=== PATIENT | female | born 1955 | race Caucasian/White ===

== ENCOUNTER 2018-03-19 14:44 | Emergency (ER) | payer OTHER ==
[2018-03-19] MEDS ORDERED: KETOROLAC TROMETHAMINE INJ/PF 30 MG/1 ML SDV IV ONE (16:33)
[2018-03-19] MEDS ORDERED: NORMAL SALINE 1000 ML 1,000 ML IV PRN ×2 (16:33→20:45)
[2018-03-19] MEDS ORDERED: ONDANSETRON HCL INJ/PF 4 MG/2 ML SDV IV ONE (16:33)
--- NOTE | 2018-03-19 16:34 | ER Document Report ---
ED General <REED CERON - Last Filed: 03/20/18 03:27> - General TRAVEL OUTSIDE OF THE [place] IN LAST 30 DAYS: No <JHON BECK - Last Filed: 03/23/18 07:09> - General Chief Complaint: Nausea/Vomiting/Diarrhea Stated Complaint: VOMITING, NECK/STOMACH PAIN Time Seen by Provider: 03/19/18 16:26 Notes: Patient is a 63-year-old female who was referred to the emergency department by her primary care with a chief complaint of nausea, vomiting that started at 4 AM. She states that she initially woke up with nausea then developed epigastric pain radiating to her right and upper quadrants and into her back. She admits to a burning cramping stabbing pain in the epigastric area. She admits to vomiting all day not being able to tolerate p.o. She denies any fevers or chills. She denies any coffee-ground emesis, hematemesis. Admits to 1-2 loose bowel movements. She denies a history of gallbladder disease. Past medical history significant for esophageal reflux that she does not take any specific medication for it just avoids irritating foods. History of hypertension on lisinopril Past surgical history significant for previous kidney stone removal Social history: Denies any tobacco, alcohol or drug use Primary care is Dr. Higgins (JHON BECK) - Related Data Allergies/Adverse Reactions: No Known Allergies Allergy (Verified 03/19/18 14:45) Past Medical History - Social History Smoking Status: Never Smoker Family History: Reviewed & Not Pertinent <JHON BECK - Last Filed: 03/23/18 07:09> Review of Systems - Review of Systems Constitutional: No symptoms reported Cardiovascular: No symptoms reported Respiratory: No symptoms reported Gastrointestinal: See HPI Genitourinary: No symptoms reported Musculoskeletal: No symptoms reported Neurological/Psychological: No symptoms reported -: Yes All other systems reviewed and negative <JHON BECK - Last Filed: 03/23/18 07:09> Physical Exam <REED CERON - Last Filed: 03/20/18 03:27> <JHON BECK - Last Filed: 03/23/18 07:09> - Vital signs Vitals: Temp Pulse Resp BP Pulse Ox 97.7 F 97 20 101/74 98 03/19/18 14:48 03/19/18 14:48 03/19/18 14:48 03/19/18 14:48 03/19/18 14:48 - Notes Notes: PHYSICAL EXAM GENERAL: Alert, irritable due to discomfort but very cooperative. Pain tolerable sitting up, worse supine HEAD: Normocephalic, atraumatic. EYES: Pupils equal, round, and reactive to light. Extraocular movements intact. ENT: Oral mucosa moist, tongue midline. NECK: Full range of motion. Supple. Trachea midline. LUNGS: Clear to auscultation bilaterally, no wheezes, rales, or rhonchi. No respiratory distress. HEART: Regular rate and rhythm. No murmurs, gallops, or rubs. ABDOMEN: Soft, nondistended, epigastric and RUQ tenderness. No guarding, rebound, or rigidity.. Bowel sounds present in all 4 quadrants. EXTREMITIES: Moves all 4 extremities spontaneously. No edema, radial and dorsalis pedis pulses 2/4 bilaterally. No cyanosis. NEUROLOGICAL: Alert and oriented x4. Normal speech. PSYCH: Normal affect, normal mood. SKIN: Warm, dry, normal turgor. No rashes or lesions noted. (JHON BECK) Course - Laboratory Result Diagrams: 03/19/18 16:21 03/19/18 16:21 <REED CERON - Last Filed: 03/20/18 03:27> - Laboratory Result Diagrams: 03/19/18 16:21 03/19/18 16:21 <JHON BECK - Last Filed: 03/23/18 07:09> - Re-evaluation Re-evalutation: 03/19/18 20:15 Ultrasound shows cholelithiasis, CAT scan showing pancreatitis with peripancreatic fluid. Elevated LFTs, significantly elevated lipase, somewhat elevated bilirubin. Concerning for gallstone pancreatitis. Dr. Higgins called me and has already reviewed the results, wants to make sure that I saw them will discuss with patient and family for transfer due to lack of GI coverage to perform ERCP. Covering with Invanz. Patient reports she is much improved after pain/nausea medication and IV fluids. She is not tachycardic, hypotensive, or febrile. Remaining labs are still pending. Requests [facility] transfer. Transfer center has been contacted, pending call back. 03/19/18 20:[address] Brito, Hospitalist, patient will be accepted for transfer. Urinalysis shows infection, culture placed, blood culture already has been placed, antibiotics have already started infusing. 03/20/18 01:20 Patient has been reevaluated twice, vital signs remain unremarkable with no hypotension, tachycardia. Patient began having a lot of pain again and had to be remedicated. Patient has a bed assignment, transport should be here in 2 hours. 03/20/18 02:45 EMS team is almost here, patient is alert and well-appearing, has not had any vomiting, vital signs unchanged, stable for transport. (REED CERON) 03/19/18 18:27 Patient is a 63-year-old female who presents with epigastric pain. Patient is afebrile, hemodynamically stable. She is visibly uncomfortable. States that Toradol, fentanyl not improving her pain. Patient's CBC did return with a leukocytosis of 22.5. Chemistry was delayed I did have to call for the results. Patient with stable chemistry however her lipase was severely elevated that required dilution therefore delay in results being released. They have now been released which shows elevations in LFTs and lipase which is concerning for common bile duct stone. She will be sent for a CT the abdomen pelvis with IV contrast as well as an ultrasound of the right upper quadrant. Patient will be kept n.p.o. at this time. We will continue to administer IV fluids and pain medication. 03/19/18 18:45 KUB without evidence of free air in the abdomen (JHON BECK) - Vital Signs Vital signs: Temp Pulse Resp BP Pulse Ox 98.8 F 84 20 123/89 H 97 03/19/18 19:55 03/19/18 19:55 03/20/18 02:31 03/20/18 02:31 03/20/18 02:31 - Laboratory Laboratory results interpreted by la: 03/19/18 03/19/18 03/19/18 16:21 16:21 19:40 WBC 27.7 H RBC 5.37 H RDW 15.6 H Plt Count 518 H Seg Neuts % (Manual) 88 H Lymphocytes % (Manual) 4 L Abs Neuts (Manual) 24.4 H Abs Monocytes (Manual) 2.2 H Sodium 146.9 H BUN 22 H Creatinine 1.51 H Est GFR ( Amer) 42 L Est GFR (Non-Af Amer) 35 L Glucose 286 H Lactic Acid 3.7 H Total Bilirubin 1.4 H Direct Bilirubin 0.8 H AST 546 H ALT 260 H Lipase 05963.6 H Urine Protein Urine Blood Ur Leukocyte Esterase 03/19/18 19:58 WBC RBC RDW Plt Count Seg Neuts % (Manual) Lymphocytes % (Manual) Abs Neuts (Manual) Abs Monocytes (Manual) Sodium BUN Creatinine Est GFR ( Amer) Est GFR (Non-Af Amer) Glucose Lactic Acid Total Bilirubin Direct Bilirubin AST ALT Lipase Urine Protein >=500 H Urine Blood MODERATE H Ur Leukocyte Esterase LARGE H Discharge <REED CERON - Last Filed: 03/20/18 03:27> <JHON BECK - Last Filed: 03/23/18 07:09> - Discharge Condition: Stable Disposition: [facility] Referrals: ROSALINDA HIGGINS MD [Primary Care Provider] - Follow up as needed
[2018-03-19 16:59] LABS: HEMATOCRIT 46.2 % (36.0-47.0); MEAN CORPUSCULAR HEMOGLOBIN 27.9 pg (27.0-33.4); MEAN CORPUSCULAR HGB CONC 32.3 g/dL (32.0-36.0); MEAN CORPUSCULAR VOLUME 86 fl (80-97); PLATELET COUNT 518 10^3/uL (150-450); RED BLOOD COUNT 5.37 10^6/uL (3.72-5.28); RED CELL DISTRIBUTION WIDTH 15.6 % (11.5-14.0); WHITE BLOOD COUNT 27.7 10^3/uL (4.0-10.5)
[2018-03-19 17:11] LABS: ALANINE AMINOTRANSFERASE 260 U/L (9-52); ALBUMIN 4.4 g/dL (3.5-5.0); ALKALINE PHOSPHATASE 111 U/L (38-126); ANION GAP 17 (5-19); ASPARTATE AMINO TRANSFERASE 546 U/L (14-36); BILIRUBIN,DIRECT 0.8 mg/dL (0.0-0.4); BILIRUBIN,TOTAL 1.4 mg/dL (0.2-1.3); BLOOD UREA NITROGEN 22 mg/dL (7-20); CALCIUM 9.3 mg/dL (8.4-10.2); CARBON DIOXIDE 26 mmol/L (22-30); CHLORIDE 104 mmol/L (98-107); GLUCOSE 286 mg/dL (75-110); POTASSIUM 4.5 mmol/L (3.6-5.0); SODIUM 146.9 mmol/L (137-145); TOTAL PROTEIN 7.7 g/dL (6.3-8.2)
[2018-03-19 17:18] LABS: ABSOLUTE LYMPHOCYTES# (MANUAL) 1.1 10^3/uL (0.5-4.7); ABSOLUTE MONOCYTES # (MANUAL) 2.2 10^3/uL (0.1-1.4); ABSOLUTE NEUTROPHILS# (MANUAL) 24.4 10^3/uL (1.7-8.2); BASOPHILS % (MANUAL) 0 % (0-2); EOSINOPHILS % (MANUAL) 0 % (0-6); LYMPHOCYTES % (MANUAL) 4 % (13-45); MONOCYTES % (MANUAL) 8 % (3-13); SEGMENTED NEUTROPHILS % (MAN) 88 % (42-78); TOTAL CELLS COUNTED 100
[2018-03-19 17:19] LABS: TOXIC GRANULATION SLIGHT
[2018-03-19 17:20] LABS: ANISOCYTOSIS SLIGHT; PLATELET COMMENT INCREASED
[2018-03-19] MEDS ORDERED: FENTANYL CITRATE INJ/PF 100 MCG/2 ML AMPUL IV ONE ×2 (17:26→23:50)
[2018-03-19] MEDS ORDERED: NORMAL SALINE 1000 ML 1,000 ML IV ONE ×3 (17:29→23:15)
[2018-03-19 18:17] LABS: LIPASE 54770.6 U/L (23-300)
[2018-03-19] MEDS ORDERED: METOCLOPRAMIDE HCL INJ/PF 10 MG/2 ML SDV IV ONE (18:22)
[2018-03-19] MEDS ORDERED: HYDROMORPHONE HCL INJ/PF 2 MG/ML AMPULE IV ONE ×2 (18:22→21:16)
--- NOTE | 2018-03-19 18:30 | RADIOLOGY REPORT (SQ) ---
EXAM DESCRIPTION: ACUTE ABDOMEN SERIES COMPLETED DATE/TIME: 03/19/2018 6:20 pm REASON FOR STUDY: EPIGASTRIC pain, tenderness COMPARISON: None. NUMBER OF VIEWS: Three views. TECHNIQUE: Frontal chest, supine abdomen and upright/ abdomen radiographic images acquired. LIMITATIONS: None. FINDINGS: CHEST: Lungs clear of infiltrates. FREE AIR: None. No abnormal gas collections. BOWEL GAS PATTERN: Nonobstructive pattern. No dilated loops or air fluid levels. CALCIFICATIONS: 1 cm calcification in the region of the upper pole the left kidney. Large irregular calcification in the right side of the pelvis not likely to be in the ureter. HARDWARE: None in the abdomen. SOFT TISSUES: No gross mass or suggestion of organomegaly. BONES: No acute fracture. No worrisome bone lesions. OTHER: No other significant finding. IMPRESSION: Possible calyceal calculus in the left kidney. TECHNICAL DOCUMENTATION: JOB ID: [id number] [employer]- All Rights Reserved Reading location - IP/workstation name: [email or web address]
--- NOTE | 2018-03-19 19:30 | RADIOLOGY REPORT (SQ) ---
EXAM DESCRIPTION: U/S ABDOMEN LIMITED W/O DOP COMPLETED DATE/TIME: 03/19/2018 7:16 pm REASON FOR STUDY: RUQ pain and elevated liver and panc enzymes COMPARISON: None. TECHNIQUE: Dynamic and static grayscale images acquired of the abdomen and recorded on PACS. Additio lina selected color Doppler and spectral images recorded. LIMITATIONS: Overlying bowel gas limits evaluation. FINDINGS: PANCREAS: Not seen. LIVER: 16 cm. Increased echogenicity. LIVER VASCULATURE: Normal directional flow of the main portal vein and hepatic veins. GALLBLADDER: Small gallstones are present. ULTRASOUND-DETECTED NGUYEN'S SIGN: Negative. INTRAHEPATIC DUCTS AND COMMON DUCT: CBD and intrahepatic ducts normal caliber. No filling defects. INFERIOR VENA CAVA: Not well seen. AORTA: Not well seen. There is no aneurysm in the midportion of the abdominal aorta. RIGHT KIDNEY: Normal size, 11 cm. Normal echogenicity. No solid or suspicious masses. No hydronephro sis. No calcifications. PERITONEAL AND RIGHT PLEURAL SPACE: No ascites or effusions. OTHER: No other significant findings. IMPRESSION: Fatty infiltration of the liver. Cholelithiasis. TECHNICAL DOCUMENTATION: JOB ID: [id number] [employer]- All Rights Reserved Reading location - IP/workstation name: [email or web address]
--- NOTE | 2018-03-19 19:48 | RADIOLOGY REPORT (SQ) ---
EXAM DESCRIPTION: CT ABD/PELVIS WITH IV ONLY COMPLETED DATE/TIME: 03/19/2018 7:34 pm REASON FOR STUDY: epigastric pain COMPARISON: None. TECHNIQUE: CT scan of the abdomen and pelvis performed using helical scanning technique with dynamic intravenous contrast injection. No oral contrast. Images reviewed with lung, soft tissue, and bone windows. Reconstructed coronal and sagittal MPR images reviewed. Delayed images for evaluation of the urinary system also acquired. All images stored on PACS. All CT scanners at this facility use dose modulation, iterative reconstruction, and/or weight based d osing when appropriate to reduce radiation dose to as low as reasonably achievable (ALARA). [facility]: Dose Right [facility]: CareDose [facility]: Dose Right [facility]: Teradose 4D [facility]: AeroDron CONTRAST TYPE AND DOSE: contrast/concentration: Isovue 300.00 mg/ml; Total Contrast Delivered: 100.0 ml; Total Saline Delivered: 72.0 ml RENAL FUNCTION: BUN 22 creatinine 1.5 RADIATION DOSE: CT Rad equipment meets quality standard of care and radiation dose reduction techniq ues were employed. CTDIvol: 20.3 - 23.8 mGy. DLP: 2311 mGy-cm.. LIMITATIONS: None. FINDINGS: LOWER CHEST: No significant findings. No nodules or infiltrates. LIVER: The liver is uniformly low in density. SPLEEN: Normal size. No focal lesions. PANCREAS: There is stranding in the peripancreatic fat. There is some free fluid around the tail of the pancreas particularly. There is edema in the pancreas. GALLBLADDER: No identified stones by CT criteria. No inflammatory changes to suggest cholecystitis. ADRENAL GLANDS: No significant masses or asymmetry. RIGHT KIDNEY AND URETER: The right kidney is hypoplastic. No significant calcifications. No hydro nephrosis or hydroureter. LEFT KIDNEY AND URETER: No solid masses. There is a 10 x 12 mm upper calyceal calculus. No hydron ephrosis or hydroureter. AORTA AND VESSELS: No aneurysm. No dissection. Renal arteries, SMA, celiac without stenosis. RETROPERITONEUM: No retroperitoneal adenopathy, hemorrhage or masses. BOWEL AND PERITONEAL CAVITY: Diverticulosis coli with no acute inflammatory changes. APPENDIX: Not identified. PELVIS: No mass. No free fluid. Normal bladder. ABDOMINAL WALL: No masses. No hernias. BONES: No significant or acute findings. OTHER: No other significant finding. IMPRESSION: 1. Acute pancreatitis with a large amount of peripancreatic and pancreatic edema. Free fluid in the mesentery. 2. Fatty infiltration of the liver. 3. Hypoplastic right kidney. 4. Large upper calyceal calculus in the left kidney. 5. Diverticulosis coli. TECHNICAL DOCUMENTATION: JOB ID: [id number] Quality ID # [id number]: Final reports with documentation of one or more dose reduction techniques (e.g., Au tomated exposure control, adjustment of the mA and/or kV according to patient size, use of iterative reconstruction technique) 2010 [employer]- All Rights Reserved Reading location - IP/workstation name: [email or web address]
[2018-03-19] MEDS ORDERED: ERTAPENEM SODIUM INJ 1 GM VIAL IV ONE (19:54)
[2018-03-19 20:12] LABS: APPEARANCE,URINE TURBID; BILIRUBIN,URINE NEGATIVE (NEGATIVE); COLOR,URINE YELLOW; GLUCOSE, URINE NEGATIVE (NEGATIVE); KETONES,URINE NEGATIVE (NEGATIVE); LEUKOCYTE ESTERASE,URINE LARGE (NEGATIVE); NITRITE,URINE NEGATIVE (NEGATIVE); PROTEIN,URINE >=500 mg/dL (NEGATIVE); URINE SPECIFIC GRAVITY 1.017; UROBILINOGEN,URINE NEGATIVE mg/dL (<2.0)
[2018-03-20 02:53] VITALS: BP 123/89
== END 2018-03-20 03:00 | disposition short-term general hospital (02) ==
LOC: ER 14:44
DX: K85.90 Acute pancreatitis without necrosis or infection, unspecified (principal); K80.20 Calculus of gallbladder without cholecystitis without obstruction; R10.11 Right upper quadrant pain; R10.13 Epigastric pain; R79.89 Other specified abnormal findings of blood chemistry; R19.7 Diarrhea, unspecified; R11.2 Nausea with vomiting, unspecified
CPT/HCPCS: 96376; 99285; 96361; 96375; 96365; 36415; 87040; 87086; 83690; 85025; 87077; 87088; 80053; 81001; 87186; 83605; 74022; 76705; 74177; J3010 ×2; J1335; J1885; J2765; J1170; J2405; J7030 ×2